=== PATIENT | male | born 1975 | race Two or more races ===

== ENCOUNTER → 2017-06-11 | Day surgery (SDC) | payer OTHER ==
[~2017-06-11] MED LIST: OSEL75CA PO; PEPCID20 MG PO; PERCOCET 5-3251 EACH PO; POLY119PG PO; TUSSI PRES-B L120 M1 PO; ULTRAM50 MG PO
== END | disposition home or self-care (01) ==
LOC: ADM 06-04 09:00 → AMB-ENDOS 09:00
DX: D12.1 Benign neoplasm of appendix (principal); K64.8 Other hemorrhoids; K43.6 Other and unspecified ventral hernia with obstruction, without gangrene; K42.0 Umbilical hernia with obstruction, without gangrene; R10.13 Epigastric pain; K35.89 Other acute appendicitis

== ENCOUNTER 2020-07-29 12:33 | Day surgery (SDC) | payer OTHER | END 2020-07-29 17:10 | disposition home or self-care (01) | LOC: AMB-ENDOS 12:33 | PROVIDERS: ATTEND Colon & Rectal Surgery | DX: K62.89 Other specified diseases of anus and rectum (principal); K64.0 First degree hemorrhoids; Z20.822 Contact with and (suspected) exposure to COVID-19 ==

== ENCOUNTER 2021-06-29 08:00 | Outpatient (CLI) | payer OTHER | END 2021-06-29 08:30 | disposition home or self-care (01) | LOC: PPH VACUNA 08:00 | PROVIDERS: ATTEND Emergency Medicine Pediatric Emergency Medicine | DX: Z23 Encounter for immunization (principal) ==